=== PATIENT | female | born 1995 | race Caucasian/White ===

== ENCOUNTER → 2017-03-29 | Outpatient (REF) | payer BC | LOC: M LAB REF 17:22 | PROVIDERS: ATTEND Advanced Practice Midwife | DX: Z11.3 Encounter for screening for infections with a predominantly sexual mode of transmission (principal); Z12.4 Encounter for screening for malignant neoplasm of cervix | CPT/HCPCS: 87491; 87591; G0123 ==

== ENCOUNTER → 2017-07-10 | Outpatient (REF) | payer BC | LOC: M LAB REF 09:44 | PROVIDERS: ATTEND Physician Assistant | DX: J02.9 Acute pharyngitis, unspecified (principal) ==